=== PATIENT | female | born 1985 | race Caucasian/White ===

== ENCOUNTER 2021-05-20 10:53 | Emergency (ER) | payer OTHER ==
[~2021-05-20] VITALS: Ht 154.9 cm; Wt 106.6 kg
[2021-05-20] MEDS ORDERED: NORCO5 PO (11:16)
[2021-05-20] MEDS ORDERED: IBUPROFEN 800800 M1 PO (11:17)
[2021-05-20] MEDS ORDERED: APAP W/CODEINE1 TA2 PO (12:28)
[2021-05-20] MEDS ORDERED: CEPHALEXIN500 MG PO (12:28)
[2021-05-20 12:33] VITALS: BP 122/72
== END 2021-05-20 12:34 | disposition home or self-care (01) ==
LOC: M.ERS 10:53
DX: S93.401A Sprain of unspecified ligament of right ankle, initial encounter (principal); Z79.899 Other long term (current) drug therapy; Z88.5 Allergy status to narcotic agent; W01.0XXA Fall on same level from slipping, tripping and stumbling without subsequent striking against object, initial encounter; Y93.89 Activity, other specified; Y92.89 Other specified places as the place of occurrence of the external cause; Y99.8 Other external cause status